=== PATIENT | female | born 1960 | race Caucasian/White ===

== ENCOUNTER 2018-06-28 11:54 | Inpatient (IN) ==
--- NOTE | 2018-06-27 21:57 | Discharge Summary ---
<Fede Shin - Last Filed: 06/28/18 12:41> Orders not resulted at time of discharge: Pending orders 06/28/18 00:01 XR hip complete RT [XR] Routine H/H [Hemoglobin and Hematocrit] [HEME] Routine Date of Encounter: 06/28/18 - Discharge Diagnosis (1) Obesity (BMI 35.0-39.9 without comorbidity) Priority: Secondary Status: Chronic (2) Arthritis of right hip Priority: Primary Status: Chronic (3) Status post total hip replacement, right Priority: Primary Status: Acute (4) Former smoker Status: Chronic - Hospital Course Hospital course: Ms. Stoll is a 58 year old female - Time Spent with Patient Total time spent providing and/or coordinating discharge services: - Discharge Medications Home Medications: Aspirin Enteric Coated [Aspirin EC] 325 mg PO BID #20 tablet. 06/27/18 [Rx] OxyCODONE Immed Rel [Roxicodone 5 MG] 5 mg PO Q6HR PRN 7 Days #28 tablet [Rx] Gabapentin [Neurontin] 200 mg PO HS 06/28/18 [History] Allergies/Adverse Reactions: 3 Allergy/AdvReac Type Severity Reaction Status Date / Time No Known Allergies Allergy Verified 06/28/18 13:07 Primary care physician: Adrianna Samuels CNP - Patient Status Disposition: Home Health Service Condition: Good - Discharge Instructions Instructions: Total Hip Replacement (DC) Follow Up With: Adrianna Samuels CNP [Primary Care Provider] - Additional Instructions: Discharge Instructions: Total Hip Replacement Please call [facility] ([phone]), your Primary Care Physician, or report to the Emergency Room if you have any of the following symptoms: Nausea, vomiting, fever greater that 101.5, swelling, chest pain, shortness of breath, increased pain/redness/drainage/odor for your incision site, numbness/ tingling, or any other concerning symptoms. ACTIVITY:Weight-bearing as tolerated for 8 weeks with hip dislocation precautions that physical therapy taught you. You may progress as tolerated under the guidance of your physical therapist. You do not need to sleep with a pillow between your legs. You can also seep on the operative side or on your stomach. Incentive Spirometer 10 times an hour. MEDICATIONS: Upon discharge resume your home medications. Take all the medications as prescribed. Take a stool softener if taking narcotic pain medications. Stool softeners are only effective if you drink enough fluids. Drink 6-8 glass of water or fluids a day, unless this is not allowed for another health problem. Despite using stool softeners, if you haven't had a bowel movement in 3 days, please switch to a gentle laxative. Gentle laxatives are sold over the counter. You should have a bowel movement within 24 hours, if not call the office. You will be discharged from the hospital with a prescription for pain medication. You are encouraged to decrease the use of narcotic pain medication as tolerated. Should you require a refill, please call the office. [facility] prescribes narcotic pain medication for only 4-6 weeks after surgery. If you require pain medication beyond this time period, you may be referred to your Primary Care Physician or to the Pain Clinic for further evaluation. Plan ahead for refills on pain medication as many narcotics either need to be picked up at the office or mailed. It is best to call 48-72 hours in advance of needing a prescription refill so you don't run out of medication. To help control the post-operative pain, you may take NSAIDs (Aleve,Advil, Motrin, ibuprofen, naprosyn) or Tylenol as prescribed on the bottle in addition to the pain medication. ANTICOAGULATION (blood thinners): Continue your Aspirin, Lovenox or Coumadin as prescribed to help prevent a blood clot in the leg or in the lungs. As long as your incision remains dry and you tolerate the NSAIDs (Aleve, Advil, Motrin, Ibuprofen, Naprosyn), it is OK to use the NSAIDS while you are taking your anticoagulation medication. Should your incision start to drain, stop the NSAID and contact our office. Common symptoms of blood clot in the legs include: localized pain, swelling, calf tenderness, redness or discoloration of the skin. Blood clot in the lung symptoms include: shortness of breath, rapid pulse, sweating, and chest pain that worsens with deep breathing, coughing up blood, lightheadedness, feelings of anxiety. If you experience any of these symptoms notify your physician immediately, go to the emergency room, or if having trouble breathing, call 911. WOUND CARE: Leave the dressing on for 7 to 10days. You may change the dressing if it is saturated greater than 50%. Do not get the dressing wet at anytime. Wash your hands with antibacterial soap, rinse and dry prior to any wound care. If you have jaylene the visiting nurse or rehab facility can remove the stapes 10-14 days after surgery and place steri-strips across the wound. Leave the steri-strips in place until they fall off on their own. You may let water from the shower run on top of the steri-strips. If you do not have a visiting nurse or rehab facility, you will need to return to the office at 10-14 days for the jaylene to be removed. If you have itching or redness around the dressing call the office. FOLLOW-UP: Please follow up with your surgeon in the orthopedic clinic in 6 weeks from the day of surgery. If you have jaylene that need to be removed, you will need to come back to the office in 10-14 days from the day of surgery. <Rukhsana Smith - Last Filed: 06/30/18 15:46> - NOTES TO OUTPATIENT PROVIDER Notes to Outpatient Provider: Please monitor CBC for acute blood loss anemia Date of Encounter: 06/30/18 Time of Encounter: 12:22 - Discharge Diagnosis (1) Status post total hip replacement, right Priority: Primary Status: Acute (2) Arthritis of right hip Priority: Primary Status: Chronic (3) Former smoker Priority: Secondary Status: Chronic - Hospital Course Hospital course: Ms. Stoll is a 58 year old female ~status post - THR. Patient had uneventful postoperative course. Stable for discharge. Afebrile, vital signs stable. Vital Signs Temp Pulse Resp BP Pulse Ox 06/30/18 10:29 98.5 F 81 16 112/67 97 06/30/18 04:10 98.3 F 73 16 94/59 95 06/29/18 22:00 99.1 F 73 17 127/78 96 06/29/18 20:19 98 06/29/18 18:21 98.9 F 77 16 110/69 98 06/29/18 16:20 98.8 F 80 16 103/69 100 Intake and Output 06/29/18 06/30/18 06/30/18 23:59 07:59 15:59 Intake Total 450 / 450 200 / 200 240 / 240 Output Total 300 / 300 Balance 450 / 450 -100 / -100 240 / 240 Intake: Oral 450 / 450 200 / 200 240 / 240 Output: Urine 300 / 300 Other: Meal Dinner Breakfast Percent of Meal Consumed 75% 50% # Voids 1 Weight 106 kg Patient Weight 06/30/18 23:59 Weight 106 kg Labs reviewed. H/H - decreased, ok per for DC - asymptomatic Short CBC 06/30/18 Range/Units 01:47 Hgb 8.6 L D (11.5-15.4) g/dL Hct 26.4 L (35.3-44.9) % BMP 06/30/18 Range/Units 01:47 Sodium 134 L (136-145) mEq/L Potassium 3.8 (3.5-5.1) mEq/L Chloride 103 (98-107) mEq/L Carbon Dioxide 25 (23-29) mEq/L BUN 12 (6-20) mg/dL Creatinine 0.74 (0.60-1.20) mg/dL Glucose 158 H (70-105) mg/dL Calcium 8.3 L (8.6-10.3) mg/dL Pain control: adequate Participating in PT. All questions and concerns addressed. Educated on use of incentive spirometer. Encouraged ambulation and proper hydration. Patient educated on post-operative restrictions and post-operative care. Assessment and plan: Continue with postoperative care Discharge plan: Home , discharge today. Acute blood loss anemia - to follow up on outpatient with PCP* - Time Spent with Patient Total time spent providing and/or coordinating discharge services: Date of admission: 06/28 Primary care physician: Adrianna Samuels CNP Anticipated date of discharge: 06/30/18 - Patient Status Functional capacity at discharge: uses cane/walker Overall status at discharge: patient is progressing back to baseline - Diet and Activity Activity: as per physical therapy
[2018-06-28] MEDS ORDERED: Lidocaine -MPF 4% 5 ML AMPUL ONE (12:34)
[2018-06-28] MEDS ORDERED: CeFAZolin Syr 2,000MG/20 ML 2,000 MG/20 ML SYRINGE IVPB ONE (12:35)
[2018-06-28] MEDS ORDERED: Albuterol 2.5 MG/3 ML NEBULIZER IH ONE (12:35)
[2018-06-28] MEDS ORDERED: EPHEDrine 50 MG/ML VIAL ONE (12:37)
[2018-06-28] MEDS ORDERED: *HR* Midazolam HCl 2 MG/2 ML VIAL ONE (12:39)
[2018-06-28] MEDS ORDERED: *HR* FentaNYL (PF) 100 MCG/2 ML VIAL ONE (12:39)
[2018-06-28] MEDS ORDERED: *HR* Propofol 200 MG/20 ML VIAL IVP ONE ×2 (12:40→16:05)
--- NOTE | 2018-06-28 12:41 | History & Physical Report ---
Date of Encounter: 06/28/18 Time of Encounter: 12:40 24 Hour HP Update - Instructions Instructions: If the History and Physical is less than 30 days old and was completed prior to A.M. admission and or procedure and has NOT been updated on calendar day of procedure please complete this update prior to performing procedure. - Update Patient reports changes in Medical Condition: No Changes in examination, assessment, or condition: No Changes in Medication: No Preop tests/diagnostics Reviewed: Yes Surgery Remains Indicated: Yes Consent for Planned Operative Procedure(s) Verified: Yes - Pre-Operative Checklist Preoperative Checklist Indicated: No Prophylactic Antibiotic Ordered: Yes Is VTE Prophylaxis Indicated?: Yes
--- NOTE | 2018-06-28 12:42 | Anesthesia Evaluation PreOp ---
Date of Encounter: 06/28/18 Time of Encounter: 12:40 - Past History Planned Operation: R robotic total hip arthroplasty Cardiac History: Denies any Significant Hx Pulmonary History: Former smoker [employer] TECHNICIAN History: Denies Any Significant HX Other Medical History: Other (chronic back pain with pain radiating down both legs) Anesthesia History: No Prior Anesthetic Complications, Past Anesthesia (L leg fx , L wrist, nasal fx, jaw fx, tubal, cerivcal spine) Alcohol Use: none Drug use: none Medications and Allergies Aspirin Enteric Coated [Aspirin EC] 325 mg PO BID #20 tablet. 06/27/18 [Rx] OxyCODONE Immed Rel [Roxicodone 5 MG] 5 mg PO Q6HR PRN 7 Days #28 tablet [Rx] 3 Allergy/AdvReac Type Severity Reaction Status Date / Time No Known Allergies Allergy Verified 06/28/18 12:35 - Meds/Allergy Pre-op Review Medications Reviewed: Yes Allergies Reviewed: Yes Beta Blockers on Current Med List: No Anesthesia Results - Labs Laboratory Tests 06/16/18 06/16/18 06/16/18 15:17 15:17 15:17 WBC 8.0 Hgb 13.6 Hct 42.6 Plt Count 280 PT 11.4 INR 1.0 APTT 31.0 Sodium 137 Potassium 4.3 Chloride 103 Carbon Dioxide 30 H BUN 14 Creatinine 0.84 Glucose 105 - Imaging EKG: report reviewed (sinus ming 06/16/18) Anesthesia Exam Weight: 105kg - HEENT Pupil (Motor): Pupils equal, EOMI Mallampati: II Teeth: Prosthesis (permanent upper and lower bridge) Oral Opening: Greater than 3 - 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
[2018-06-28] MEDS ORDERED: Ondansetron 4 MG/2 ML VIAL ONE ×3 (12:43→16:04)
[2018-06-28] MEDS ORDERED: Dexamethasone 4 MG/ML VIAL ONE ×2 (12:43→16:04)
[2018-06-28] MEDS ORDERED: Lidocaine -MPF 2% 2 ML VIAL ONE ×2 (12:43→16:04)
[2018-06-28] MEDS ORDERED: Ringers Solution, Lactated 1,000 ML IVC SCH ×2 (12:45→16:47)
[2018-06-28] MEDS ORDERED: Acetaminophen IV 1,000 MG/100 ML INFUS..BTL ONE (12:46)
[2018-06-28] MEDS ORDERED: Ethanol\\Acetic Acid\\Na Ace\\Ben 1,000 ML IRRIG.SOLN IR ONE (13:10)
[2018-06-28] MEDS ORDERED: Ondansetron 4 MG/2 ML VIAL IVP ONE (13:38)
[2018-06-28] MEDS ORDERED: *HR* OxyCODONE/APAP 5/325 TABLET PO PRN ×2 (13:38→16:47)
[2018-06-28] MEDS ORDERED: *HR* Promethazine 25 MG/ML VIAL IVP PRN (13:38)
[2018-06-28] MEDS ORDERED: *HR* Atropine Sulfate 8 MG/20 ML VIAL IVP ONE (14:30)
[2018-06-28] MEDS ORDERED: *HR* Morphine 10 MG/ML VIAL ONE (14:35)
[2018-06-28] MEDS ORDERED: *HR* Magnesium Sulfate 1 GM/2 ML VIAL ONE (14:54)
--- NOTE | 2018-06-28 15:02 | Orthopedic Operative Note ---
Date of procedure: 06/28/18 Pre-op diagnosis: Right hip arthritis Post-op diagnosis: same Procedure: Procedure: Right Total Hip Replacment robotic-assisted Estimated blood loss: 200 cc Hardware: Metal and polyethylene replacement. Efren DM Cup: 56 cup Femoral size 8 stem Head: 4 head with Jamila Procedural Notes: Grade 4 arthritic changes femoral head acetabular socket, procedure performed with robotic assistance. Operative hip right lower extremity shorter 5 mm as measured by CT scan preoperatively. Operative procedure: The patient was brought to the operating room and placed on the operating room table. After general anesthesia was administered the patient was placed in the lateral decubitus position with the operative leg up. All pressure points were padded appropriately and the head was stabilized in the neutral position. The operative extremity was prepped and draped in the sterile surgical fashion patient received IV antibiotic prior to skin incision. 3 Steinmann pins were placed in the iliac crest 3 cm proximal to the anterior superior iliac spine this was for the robotic-assisted sensor. This was done through a small 2 cm incision. A standard posterior approach is made to the operative hip, the incision was made through the skin and subcutaneous tissue hemostasis was obtained with Bovie cautery. Using careful sharp dissection the fascia was identified and incised exposing the external rotators. The greater trochanter was marked, and length was measured at this time utilizing robotic assistance. The external rotators were released off the greater trochanter and tagged with # 2 FiberWire suture. The capsule was T'd open and the hip was brought into internal rotation. Patient noted to have grade 4 arthritic changes femoral head. The femoral neck cut was made at the appropriate level roughly 15 mm proximal to the lesser trochanter aced on preoperative templating. An anterior capsulotomy was performed for the anterior retractor. Soft tissues removed from the acetabulum. Patient noted to have grade 4 arthritic changes acetabulum. The acetabulum reference point was confirmed. The acetabulum was then mapped with robotic assistance. Based on the preoperative plan the acetabulum was reamed in one step with a 55 reamer. The 56 acetabulum was impacted with robotic assistance and 40 degrees of abduction and 20 degrees of anteversion. The hip was brought back in to internal rotation and prepared with the wire bound box machine operator followed by the canal finder followed by the reaming process to a size 7/ 8 broaching process in 20 degrees anteversion. It was broached up to the appropriate size 8 Trial reduction revealed leg lengths close to normal. The femoral implant was impacted in place in 20 degrees of anteversion. Trial reduction found the hip to be stable with 4 head and Jamila. The trials were removed and the real implants were impacted in place. The hip was reduced, patient had robotic confirmed leg length of 6 mm longer than the contralateral side. The hip had excellent stability with forward flexion to 90 degrees adduction of 30 degrees and internal rotation of 60 degrees. The hip had no shuck. The hip sat with an antibacterial solution. It was irrigated out with 2 L of pulse irrigation. The Steinmann pins were removed. The hip was closed by the PA. The deep tissue was irrigated and closed deep with #1 PDS suture superficially with 0 PDS suture and skin was closed with Dermabond and zip tie. The patient was placed in a sterile dressing and abduction pillow. The patient was extubated and transferred to the recovery room in stable condition. Anesthesia: NIKKIE Surgeon: Fede Shin Was there an neurology physician assistant present: No Estimated blood loss (cc): 200 Condition: stable Disposition: PACU
[2018-06-28] MEDS ORDERED: *HR* Succinylcholine 200 MG/10 ML VIAL IVP ONE (16:04)
[2018-06-28] MEDS: *HR* HYDROmorphone (PF) 1 MG/ML SYRINGE IVP PRN ×2 (16:06→16:12)
[2018-06-28 16:35] LABS: Hematocrit 40.3 % (35.3-44.9); Hemoglobin 12.9 g/dL (11.5-15.4)
[2018-06-28] MEDS ORDERED: Sennosides 8.6 MG TABLET PO PRN (16:47)
[2018-06-28] MEDS ORDERED: Ondansetron 4 MG/2 ML VIAL IVP PRN (16:47)
[2018-06-28] MEDS ORDERED: traMADol 50 MG TABLET PO PRN (16:47)
[2018-06-28] MEDS ORDERED: MOM Conc 10 ML UD.LIQ PO PRN (16:47)
[2018-06-28] MEDS ORDERED: Temazepam 15 MG CAPSULE PO PRN (16:47)
[2018-06-28] MEDS ORDERED: Naloxone 0.4 MG/ML INJ IVP PRN (16:47)
[2018-06-28] MEDS ORDERED: *HR* Enoxaparin 30 MG/0.3 ML SYRINGE SQ SCH (18:00)
[2018-06-28] MEDS: Ascorbic Acid 500 MG TABLET PO SCH (18:02)
[2018-06-28] MEDS: *HR* Enoxaparin 30 MG/0.3 ML SYRINGE SQ SCH (18:02)
[2018-06-28] MEDS: *HR* OxyCODONE Immed Rel 5 MG TABLET PO PRN (18:02)
[2018-06-28] MEDS: Gabapentin 100 MG CAPSULE PO SCH (20:05)
[2018-06-29 01:51] LABS: BUN/Creatinine Ratio 17 (6-26); Blood Urea Nitrogen 14 mg/dL (6-20); Calcium 8.8 mg/dL (8.6-10.3); Carbon Dioxide 23 mEq/L (23-29); Chloride 105 mEq/L (98-107); Glucose 159 mg/dL (70-105); Osmolality,Calculated 280 (280-300); Potassium 4.6 mEq/L (3.5-5.1); Sodium 133 mEq/L (136-145); eGFR For Non-African Americans > 60 (> 60)
[2018-06-29 01:53] LABS: Hematocrit 34.3 % (35.3-44.9)
[2018-06-29 01:59] LABS: Hemoglobin 11.1 g/dL (11.5-15.4)
[2018-06-29] MEDS: *HR* Enoxaparin 30 MG/0.3 ML SYRINGE SQ SCH ×2 (05:48→17:35)
--- NOTE | 2018-06-29 06:20 | Orthopedics Progress Note ---
Date of Encounter: 06/29/18 Time of Encounter: 06:19 - Assessment and Plan (1) Obesity (BMI 35.0-39.9 without comorbidity) Current Visit: Yes Status: Chronic (2) Arthritis of right hip Current Visit: No Status: Chronic (3) Status post total hip replacement, right Current Visit: No Status: Acute (4) Former smoker Current Visit: No Status: Chronic Subjective Interval history: Patient was seen this morning doing well without complaints. Afebrile vital signs stable. Operative extremity: Neurovascularly intact Dressing clean dry and intact Calves nontender Assessment and plan: Continue with postoperative care Hematocrit 34 discharged today Objective Vital signs: Vital Signs Temp Pulse Resp BP Pulse Ox 06/29/18 05:00 97.9 F 53 18 99/60 99 06/28/18 22:42 98.1 F 55 16 107/68 98 06/28/18 20:58 97 06/28/18 19:50 97.8 F 69 16 114/61 97 06/28/18 18:39 98.0 F 76 16 131/64 97 06/28/18 17:50 98.0 F 71 16 119/66 97 06/28/18 17:23 97.9 F 73 16 125/75 92 06/28/18 16:55 96 06/28/18 16:49 97.8 F 71 14 120/70 97 06/28/18 16:17 66 20 129/66 97 06/28/18 16:07 98.9 F 68 20 125/77 98 06/28/18 15:57 72 20 104/82 100 06/28/18 15:47 74 18 113/61 100 06/28/18 15:37 98.3 F 90 16 142/84 100 06/28/18 12:43 97.9 F 65 18 115/74 98 06/28/18 12:24 97.9 F 65 18 115/74 98 Intake and Output 06/28/18 06/28/18 06/29/18 15:59 23:59 07:59 Intake Total 900 / 900 0 / 0 Output Total 200 / 200 250 / 250 0 / 0 Balance -200 / -200 650 / 650 0 / 0 Intake: IV Fluids 100 / 100 Ancef 2,000 MG In 0.9 % Sodium 100 / 100 Chloride 100 ML @ 200 mls/hr IVPB Q8H [facility] Rx#:[id number] Oral 800 / 800 0 / 0 Output: Urine 250 / 250 0 / 0 Estimated Blood Loss 200 / 200 Other: # Voids 1 Weight 105.687 kg 105.9 kg Patient Weight 06/29/18 23:59 Weight 105.9 kg - Labs CBC & BMP: 06/29/18 01:10 06/29/18 01:10 Labs: Abnormal lab results Hgb 11.1 g/dL (11.5-15.4) L D 06/29/18 01:10 Hct 34.3 % (35.3-44.9) L 06/29/18 01:10 Sodium 133 mEq/L (136-145) L 06/29/18 01:10 Glucose 159 mg/dL (70-105) H 06/29/18 01:10 - VTE Documentation of Mechanical Device: Venous foot pump, device Consult Discharge Plan - Plan Referrals: Adrianna Samuels, RUNNER OUT [Primary Care Provider] -
[2018-06-29] MEDS: Ascorbic Acid 500 MG TABLET PO SCH ×2 (07:31→17:35)
[2018-06-29] MEDS: *HR* OxyCODONE Immed Rel 5 MG TABLET PO PRN ×4 (07:31→21:54)
[2018-06-29] MEDS: Multivit/Ca/Min/Fe/FA 1 TAB TABLET PO SCH (07:31)
--- NOTE | 2018-06-29 12:28 | Physician Discharge Referral ---
- Diagnosis (1) Status post total hip replacement, right Status: Acute (2) Arthritis of right hip Status: Chronic (3) Former smoker Status: Chronic - Transfer Medications Home Medications: Aspirin Enteric Coated [Aspirin EC] 325 mg PO BID #20 tablet. 06/27/18 [Rx] OxyCODONE Immed Rel [Roxicodone 5 MG] 5 mg PO Q6HR PRN 7 Days #28 tablet [Rx] Acetaminophen with Codeine [Acetaminophen-Cod #4 Tablet] 1 tab PO Q6H PRN [History] Gabapentin [Neurontin] 200 mg PO HS 06/28/18 [History] Allergies/Adverse Reactions: 3 Allergy/AdvReac Type Severity Reaction Status Date / Time No Known Allergies Allergy Verified 06/28/18 13:07 - Respiratory Orders Smoking Cessation: Smoking cessation has been advised. For more information, call the [place] Tobacco Quit Line at 9-755-SDQS-NOW. CERTIFICATION: I certify that the transfer of the above named patient to an Extended Care Facility is necessary for the continuing treatment of the diagnosis listed. The above information is true and accurate reflection of patient's current condition. Confidential - Redisclosure prohibited without a patient's written consent.
--- NOTE | 2018-06-29 12:29 | Event Note ---
Date of Encounter: 06/29/18 Time of Encounter: 23:17 PCR - POD#1. Patient seen at bedside, without complaints. A&O x 3 Afebrile, vital signs stable. Vital Signs Temp Pulse Resp BP Pulse Ox 06/29/18 22:00 99.1 F 73 17 127/78 96 06/29/18 20:19 98 06/29/18 18:21 98.9 F 77 16 110/69 98 06/29/18 16:20 98.8 F 80 16 103/69 100 06/29/18 10:56 98.3 F 71 16 121/81 96 06/29/18 06:49 98.6 F 54 16 95/56 100 06/29/18 05:00 97.9 F 53 18 99/60 99 Intake and Output 06/29/18 06/29/18 06/29/18 07:59 15:59 23:59 Intake Total 0 / 0 1480 / 1480 450 / 450 Output Total 300 / 300 1000 / 1000 Balance -300 / -300 480 / 480 450 / 450 Intake: IV Fluids 1000 / 1000 Lactated Ringers 1,000 ML @ 75 1000 / 1000 mls/hr IVC .[id number] [facility] Rx#: [id number] Oral 0 / 0 480 / 480 450 / 450 Output: Urine 300 / 300 1000 / 1000 Other: Meal Lunch Dinner Percent of Meal Consumed 100% 75% # Voids 1 1 1 Weight 105.9 kg Patient Weight 06/29/18 23:59 Weight 105.9 kg Labs reviewed. H/H - stable, asymptomatic Short CBC 06/29/18 Range/Units 01:10 Hgb 11.1 L D (11.5-15.4) g/dL Hct 34.3 L (35.3-44.9) % BMP 06/29/18 Range/Units 01:10 Sodium 133 L (136-145) mEq/L Potassium 4.6 (3.5-5.1) mEq/L Chloride 105 (98-107) mEq/L Carbon Dioxide 23 (23-29) mEq/L BUN 14 (6-20) mg/dL Creatinine 0.83 (0.60-1.20) mg/dL Glucose 159 H (70-105) mg/dL Calcium 8.8 (8.6-10.3) mg/dL Pain control: adequate Participating in PT. All questions and concerns addressed. Educated on use of incentive spirometer. Encouraged ambulation and proper hydration. Patient educated on post-operative restrictions and post-operative care. Assessment and plan: Continue with postoperative care Discharge plan: Home,with hh in AM. .
[2018-06-29] MEDS: Gabapentin 100 MG CAPSULE PO SCH (20:12)
[2018-06-30 02:20] LABS: Hematocrit 26.4 % (35.3-44.9)
[2018-06-30 02:23] LABS: Hemoglobin 8.6 g/dL (11.5-15.4)
[2018-06-30 02:40] LABS: BUN/Creatinine Ratio 16 (6-26); Blood Urea Nitrogen 12 mg/dL (6-20); Calcium 8.3 mg/dL (8.6-10.3); Carbon Dioxide 25 mEq/L (23-29); Chloride 103 mEq/L (98-107); Glucose 158 mg/dL (70-105); Osmolality,Calculated 281 (280-300); Potassium 3.8 mEq/L (3.5-5.1); Sodium 134 mEq/L (136-145); eGFR For Non-African Americans > 60 (> 60)
[2018-06-30] MEDS: *HR* Enoxaparin 30 MG/0.3 ML SYRINGE SQ SCH (05:46)
--- NOTE | 2018-06-30 07:50 | Orthopedics Progress Note ---
Date of Encounter: 06/30/18 Time of Encounter: 07:49 - Assessment and Plan (1) Obesity (BMI 35.0-39.9 without comorbidity) Current Visit: Yes Status: Chronic (2) Arthritis of right hip Current Visit: No Status: Chronic (3) Status post total hip replacement, right Current Visit: No Status: Acute (4) Former smoker Current Visit: No Status: Chronic (5) Acute blood loss anemia Current Visit: Yes Status: Acute Subjective Interval history: Patient was seen this morning doing well without complaints. Afebrile vital signs stable. Operative extremity: Neurovascularly intact Dressing clean dry and intact Calves nontender Assessment and plan: Continue with postoperative care Hematocrit 26, asymptomatic discharged today Objective Vital signs: Vital Signs Temp Pulse Resp BP Pulse Ox 06/30/18 04:10 98.3 F 73 16 94/59 95 06/29/18 22:00 99.1 F 73 17 127/78 96 06/29/18 20:19 98 06/29/18 18:21 98.9 F 77 16 110/69 98 06/29/18 16:20 98.8 F 80 16 103/69 100 06/29/18 10:56 98.3 F 71 16 121/81 96 Intake and Output 06/29/18 06/29/18 06/30/18 15:59 23:59 07:59 Intake Total 1480 / 1480 450 / 450 200 / 200 Output Total 1000 / 1000 300 / 300 Balance 480 / 480 450 / 450 -100 / -100 Intake: IV Fluids 1000 / 1000 Lactated Ringers 1,000 ML @ 75 1000 / 1000 mls/hr IVC .[id number] [facility] Rx#: [id number] Oral 480 / 480 450 / 450 200 / 200 Output: Urine 1000 / 1000 300 / 300 Other: Meal Lunch Dinner Percent of Meal Consumed 100% 75% # Voids 1 1 Weight 106 kg Patient Weight 06/30/18 23:59 Weight 106 kg - Labs CBC & BMP: 06/30/18 01:47 06/30/18 01:47 Labs: Abnormal lab results Hgb 8.6 g/dL (11.5-15.4) L D 06/30/18 01:47 Hct 26.4 % (35.3-44.9) L 06/30/18 01:47 Sodium 134 mEq/L (136-145) L 06/30/18 01:47 Glucose 158 mg/dL (70-105) H 06/30/18 01:47 Calcium 8.3 mg/dL (8.6-10.3) L 06/30/18 01:47 - VTE Documentation of Mechanical Device: Venous foot pump, device Consult Discharge Plan - Plan Referrals: Adrianna Samuels, DRINK WAITER [Primary Care Provider] -
[2018-06-30] MEDS: *HR* OxyCODONE Immed Rel 5 MG TABLET PO PRN (09:27)
[2018-06-30] MEDS: Multivit/Ca/Min/Fe/FA 1 TAB TABLET PO SCH (09:27)
[2018-06-30] MEDS: Ascorbic Acid 500 MG TABLET PO SCH (09:28)
[2018-06-30 10:31] VITALS: BP 112/67
== END 2018-06-30 11:21 | disposition home health service (06) | DRG 470 ==
LOC: SAMDAY 11:54 → 3NENU 17:27
PROVIDERS: ADMIT Orthopaedic Surgery; ATTEND Orthopaedic Surgery